=== PATIENT | male | born 1945 | race Caucasian/White ===

== ENCOUNTER 2016-07-04 09:31 | Day surgery (SDC) | payer OTHER, MEDICARE ==
--- NOTE | 2016-06-23 11:34 | GHP ---
[f rep st] HISTORY AND PHYSICAL Amended report DATE OF ADMISSION: 07/04/2016 HISTORY OF PRESENT ILLNESS: The patient is a 70-year-old male who comes to our office for the first time complaining of left lower hernia x1 month. He has had previous surgery in the same area, a left inguinal hernia repair as well as another surgery, a prostatectomy. He reports a palpable painful mass over his left groin. ALLERGIES: Penicillin, sulfa. MEDICATIONS: Zocor. PAST SURGICAL HISTORY: Hernia repair, prostatectomy. 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 Never a smoker, . REVIEW OF SYSTEMS: He had a negative 10-point review of systems. PHYSICAL EXAMINATION: GENERAL: The patient is a pleasant male, in no apparent distress. HEAD AND NECK: Normocephalic, atraumatic. No masses. CHEST: CTA bilaterally. HEART: Regular rhythm and rate. ABDOMEN: Umbilical scar, bilateral inguinal hernias. EXTREMITIES: No lower extremity edema. IMPRESSION: 70-year-old male, bilateral inguinal hernias. RECOMMENDATION: Open bilateral inguinal hernia repair was discussed with the patient in detail, including the risks of bleeding, scrotal edema, nerve injury , testicular pain, and patient elects to proceed with scheduling surgery for July 04, 2016. This is for a right inguinal hernia and a recurrent left inguinal hernia. /[id number]/MODL Add acc#, 06/28/16, jameel ALVARADO
[~2016-07-04 09:31] MED LIST: BUPIVACAINE 0.5% 30 ML SDV ONE; LIDOCAINE 1% 30 ML SDV ONE; SODIUM BICARBONATE 10 MEQ/10 ML SYR IVP ONE; ceFAZolin 2 GM in D5W 100 ML IV ONE; ceFAZolin 2 GM/DEXTROSE 100 ML IV ONE
[2016-07-04] MEDS ORDERED: LIDOCAINE 1% 5 ML SDV ID PRN (10:43)
[2016-07-04] MEDS ORDERED: LR 1,000 ML IV ONE (10:43)
[2016-07-04] MEDS ORDERED: CEFAZOLIN 2 GM/DEXTROSE/100 ML BAG IV ONE (10:46)
[2016-07-04] MEDS ORDERED: MIDAZOLAM 2 MG/2 ML VIAL ONE (11:47)
[2016-07-04] MEDS ORDERED: fentaNYL 100 MCG/2 ML INJ ONE ×2 (11:58→12:34)
[2016-07-04] MEDS ORDERED: DEXAMETHASONE 4 MG/ML VIAL ONE (11:58)
[2016-07-04] MEDS ORDERED: ONDANSETRON 4 MG/2 ML VIAL ONE (11:58)
[2016-07-04] MEDS ORDERED: KETOROLAC 30 MG/1 ML SDV ONE (11:58)
[2016-07-04] MEDS ORDERED: LIDOCAINE 2% 5 ML SDV ONE (12:02)
[2016-07-04] MEDS ORDERED: epHEDrine SULFATE 10 MG/ML SYR ONE (12:11)
[2016-07-04] MEDS ORDERED: ROCURONIUM 50 MG/5 ML VIAL ONE (12:39)
[2016-07-05] MEDS ORDERED: POLYETHYLENE GLYCOL 3350 17 GM PKT PO SCH (09:00)
--- NOTE | 2016-07-23 22:10 | GOP ---
[f rep st] OPERATIVE REPORT DATE OF OPERATION: 07/04/2016 SURGEON: Naveed Coronado MD CORRECTIONAL AGENCY DIRECTOR: Martín Merlos PA-C. ANESTHESIOLOGIST: Dr. Stafford. PREOPERATIVE DIAGNOSIS: Bilateral inguinal hernias. POSTOPERATIVE DIAGNOSIS: Bilateral inguinal hernias. PROCEDURE PERFORMED: Open bilateral inguinal hernia repairs. FINDINGS: The patient was found to have bilateral direct defects, left greater than right. ESTIMATED BLOOD LOSS: Negligible. DESCRIPTION OF PROCEDURE: Patient was taken to the operating room, where he received a satisfactory by Dr. Stafford. He was placed in a supine position, prepped and draped in the usual sterile fashion. Bilateral inguinal incisions were made and carried down through the subcutaneous tissue. Hemostasis was obtained with electrocautery and 3-0 Vicryl ties. External oblique was open ed to the external ring. The ilioinguinal nerves were identified and preserved. The cords were mob ilized from the floor of the canal. The cremasteric fibers were incised. No indirect sacs were camryn ntified. Some lipomas were resected free from the cord and ligated at the internal ring and removed . Hemostasis was carefully obtained. The direct defects were imbricated with running 2-0 Vicryl hill tures, and a Covidien ProGrip mesh was placed over the inguinal floor. This was split-patched to pa ss the limb around the cord structures. It was then anchored in place with 0 Surgilon suture, secur ing it to the lacunar ligament, to the shelving edge of the inguinal ligament, to the internal obliq ue fascia. Both sides were handled in a similar manner. Hemostasis was assured. The wounds were i nfiltrated with 0.5% Marcaine. Cord and nerve root were replaced in the anatomic position. The ext ernal oblique was closed with a running 2-0 Vicryl suture, subcu with 3-0 Vicryl and the skin with 4 -0 Monocryl subcuticular sutures. He tolerated the procedure well, was taken to the recovery room i n good condition. No complications. /[id number]/MODL
== END 2016-07-04 15:05 | disposition home or self-care (01) ==
LOC: UNDOADMOB 09:31 → F3N 09:31 → FSGY 09:31 → EDSTATUS 11:00 → F3N 12:03 → F3E 12:03 → FSGY 15:05
PROVIDERS: ATTEND Surgery
PROC: 0YUA0JZ Supplement Bilateral Inguinal Region with Synthetic Substitute, Open Approach (ICD-10-PCS; principal; 2016-07-04 11:00)
DX: K40.91 Unilateral inguinal hernia, without obstruction or gangrene, recurrent (principal); K40.90 Unilateral inguinal hernia, without obstruction or gangrene, not specified as recurrent
CPT/HCPCS: C1781; J0690; J1100; J1885; J2250; J2405; J3010